=== PATIENT | female | born 1990 | race Caucasian/White ===

== ENCOUNTER 2023-03-22 22:17 | Emergency (ER) | payer OTHER, SELFPAY ==
[2023-03-22] VITALS (11 sets, daily range): BP systolic 104–129; BP diastolic 62–80; PULSE 105–112; RESP 16; TEMP 36.4; O2SAT 98–99; BMI 19.8
--- NOTE | 2023-03-22 22:35 | ECG_ITS ---
The [facility] Test Date: 2023-03-22 Pat Name: JINA SO Department: Room: - Gender: Female Bumboater: : 1990 Requested By: [id number] Order Number: [id number] Reading MD: JOSE M PITT Measurements Intervals Aubrey Rate: 108 P: 85 CO: 130 QRS: 81 QRSD: 68 T: 70 QT: 322 QTc: 386 Interpretive Statements [address] changes 9150 abnormal ECG No previous ECG available for comparison Electronically Signed On 03-23-2023 7:07:50 EDT by JOSE M PITT
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
[2023-03-22 22:55] LABS: Basophils Absolute Auto 0.1 10^3/uL (0.0-0.1); Basophils Percent Auto 0.9 % (0.2-2.0); Eosinophils Absolute Auto 0.1 10^3/uL (0.0-0.7); Eosinophils Percent Auto 1.2 % (0.9-7.0); Hematocrit 33.1 % (36.0-48.0); Hemoglobin 10.2 g/dL (12.0-16.0); Immature Granulocytes Abs Auto 0.05 10^3/uL (0.00-0.03); Immature Granulocytes Pct Auto 0.6 % (0.0-0.5); Lymphocytes Absolute Auto 2.7 10^3/uL (1.2-3.8); Lymphocytes Percent Auto 33.5 % (20.5-60.0); Mean Corpuscular HGB Conc 30.8 g/dL (29.9-35.2); Mean Corpuscular Hemoglobin 20.9 pg (26.7-34.0); Mean Platelet Volume 11.2 fL (9.5-13.5); Monocytes Absolute Auto 0.3 10^3/uL (0.3-0.8); Monocytes Percent Auto 3.6 % (1.7-12.0); Neutrophils Absolute Auto 4.9 10^3/uL (1.4-6.5); Neutrophils Percent Auto 60.2 % (43.0-75.0); Platelet Count 217 10^3/uL (150-450); Red Blood Count 4.87 10^6/uL (4.20-5.40); White Blood Count 8.1 10^3/uL (4.0-11.0)
[2023-03-22 23:00] LABS: Bilirubin Urine NEGATIVE (NEGATIVE); Blood Urine NEGATIVE (NEGATIVE); Clarity Urine CLEAR (CLEAR); Color Urine LT. YELLOW (YELLOW); Glucose Urine UA NEGATIVE (NEGATIVE); HCG Qualitative NEGATIVE (NEGATIVE); Ketones Urine TRACE mg/dL (NEGATIVE); Leukocyte Esterase Urine TRACE (NEGATIVE); Nitrite Urine NEGATIVE (NEGATIVE); Protein Urine NEGATIVE (NEG/TRACE); Specific Gravity Urine 1.025 (1.005-1.025); Urobilinogen Urine 0.2 EU/dL (0.2-1.0)
--- NOTE | 2023-03-22 23:01 | PC.NURSE ---
patient sent over from [facility] for examination. patient states has been experiencing center chest pain and shortness of breath for 3 days. patient states chest pain comes and goes but she has been consistently SOB, unable to walk short distances without feeling weak. states something just doesn't feel right. 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 patient has also been experiencing diarrhea for 2 weeks. physician aware and has been given her a green pill to stop it. states she is still having episodes. patient states appetite has been normal, currently has coffee and candy at bedside. bedside conveyor monitor applied, ekg obtained. iv initated
[2023-03-22 23:12] LABS: Lactate/Lactic Acid 1.5 mmol/L (0.4-2.0)
[2023-03-22] MEDS: KETOROLAC TROMETHAMINE 30 MG/ML VIAL IVP (23:12)
[2023-03-22] MEDS: 0.9 % SODIUM CHLORIDE 1,000 ML 1000 ML IV (23:12)
[2023-03-22 23:13] LABS: Alanine Aminotransferase 272 U/L (14-59); Albumin Globulin Ratio 1.1; Albumin Level 3.5 g/dL (3.4-5.0); Alkaline Phosphatase 81 U/L (46-116); Anion Gap 14.8; Aspartate Amino Transferase 186 U/L (15-37); Bilirubin Total 0.4 mg/dL (0.2-1.0); Calcium 8.5 mg/dL (8.5-10.1); Carbon Dioxide 28.4 mmol/L (21.0-32.0); Chloride 103 mmol/L (98-107); Estimated GFR (African America >60 (>=60); Estimated GFR (Non-African Ame 55 (>=60); Globulin 3.1 g/dL; Glucose 116 mg/dL (74-106); Potassium 4.2 mmol/L (3.5-5.1); Sodium 142 mmol/L (136-145); Total Protein 6.6 g/dL (6.4-8.2); Troponin I High Sensitivity <4.0 pg/mL (4.0-51.3)
[2023-03-22 23:14] LABS: Amorphous Sediment Urine MANY; Bacteria Urine MODERATE #/HPF (NONE SEEN); Cast Seen? NONE SEEN #/LPF (NONE SEEN); Crystals Seen? Seen #/HPF (None Seen); Mucus Urine NONE SEEN (NONE SEEN); Squamous Epithelial Cell Urine FEW #/LPF (NONE/RARE)
[2023-03-22 23:15] LABS: Urine Culture Indicated YES
[2023-03-22 23:21] LABS: Adenovirus NOT DETECTED (NOT DETECTE); Bordetella parapertussis NOT DETECTED (NOT DETECTE); Coronavirus 229E NOT DETECTED (NOT DETECTE); Coronavirus HKU1 NOT DETECTED (NOT DETECTE); Coronavirus NL63 NOT DETECTED (NOT DETECTE); Coronavirus OC43 NOT DETECTED (NOT DETECTE); Human Metapneumovirus NOT DETECTED (NOT DETECTE); Human Rhinovirus/Enterovirus NOT DETECTED (NOT DETECTE); Influenza A NOT DETECTED (NOT DETECTE); Influenza B NOT DETECTED (NOT DETECTE); Mycoplasma pneumoniae NOT DETECTED (NOT DETECTE); Parainfluenza Virus 1 NOT DETECTED (NOT DETECTE); Parainfluenza Virus 2 NOT DETECTED (NOT DETECTE); Parainfluenza Virus 3 NOT DETECTED (NOT DETECTE); Parainfluenza Virus 4 NOT DETECTED (NOT DETECTE); Respiratory Syncytial Virus NOT DETECTED (NOT DETECTE); SARS-CoV-2 NOT DETECTED (NOT DETECTE)
[2023-03-22 23:29] LABS: D Dimer <0.19 mg/L FEU (<=0.59)
--- NOTE | 2023-03-22 23:34 | XR_ITS ---
The [place] [address] Patient Name: JINA SO MRN: [id number] date: 1990 Sex: F Assigned Patient Location: ER Current Patient Location: ED.MAIN Accession/Order Number: [id number] Exam Date: 03/22/2023 23:58 Report Date: 03/23/2023 00:44 At the request of: JOYA MARKER Procedure: XR acute abdomen series EXAM: XR acute abdomen series HISTORY: CP, abd pain COMPARISON: None. TECHNIQUE: One view of the chest and 2 views of the abdomen were obtained. FINDINGS: The cardiac silhouette is normal in size. The lungs are clear. There is no significant pneumothorax or pleural effusion. There is a nonspecific bowel gas pattern without evidence of bowel obstruction. No intraperitoneal free air is seen. XR/XR acute abdomen series IMPRESSION: 1. No acute cardiopulmonary abnormality. 2. Nonspecific bowel gas pattern without evidence of bowel obstruction. Electronically authenticated by: Omi ROWLAND Date: 03/23/2023 00:44
[2023-03-23] MEDS: DICYCLOMINE HCL 10 MG CAPSULE 20 MG PO (00:06)
[2023-03-23] MEDS: ACETAMINOPHEN 325 MG TABLET 650 MG PO (00:25)
[2023-03-23] MEDS: CIPROFLOXACIN IN 5 % DEXTROSE 400 MG/200 ML PIGGYBACK 200 MG IV (00:25)
== END 2023-03-23 01:46 | disposition home or self-care (01) ==
PROVIDERS: Emergency Provider Emergency Medicine
DX: R07.89 Other chest pain (principal); N39.0 Urinary tract infection, site not specified; R19.7 Diarrhea, unspecified; M25.572 Pain in left ankle and joints of left foot; M25.571 Pain in right ankle and joints of right foot; Z79.899 Other long term (current) drug therapy; Z20.822 Contact with and (suspected) exposure to COVID-19; F17.210 Nicotine dependence, cigarettes, uncomplicated
CPT/HCPCS: 0202U; 36415; 74022; 80053; 81001; 83605; 83690; 84484; 84703; 85025; 85378; 87086; 93005; 96374; 96375; 99285